=== PATIENT | male | born 1980 | race Caucasian/White ===

== ENCOUNTER 2022-02-23 23:07 | Emergency (ER) | payer SELFPAY ==
[~2022-02-23] VITALS: Ht 175.3 cm; Wt 81.6 kg
[2022-02-23 23:07] VITALS: BP 125/80
[~2022-02-23 23:07] MED LIST: [UNRECOGNIZED DRUG - REMARK]
--- NOTE | 2022-02-23 23:07 | NUR ---
TO [facility] WITH [place] [facility]
[2022-02-23] MEDS ORDERED: NACL 0.9% 1,000 ML IV ONE (23:55)
[2022-02-24 00:22] LABS: ANION GAP 18.4 (8-16); CARBON DIOXIDE 20.3 mmol/L (21-32); POTASSIUM 3.7 mmol/L (3.5-5.1)
--- NOTE | 2022-02-24 00:30 | NUR ---
41YR OLD MALE [facility] FOR PRE BOOK CUSTODY. PAUL PRATHER STATED TO OFFICER THAT PT WAS DIABETES. SUBJECT NEED MED CLEARANCE FOR CUSTODY BOOKING. ACCU CHECK WAS [address]. PD AT BEDSIDE. DENIES N/V OR ABD PAIN. PT STATES HAVING PAIN IN LEFT ANKLE . PLUS SWELLING GOOD ROM. DENIES ANY INJURY. 20G IV CATH PLACED IN R FOREARM NKDA DM
[2022-02-24] MEDS ORDERED: METF-1243 PO (00:39)
[2022-02-24] MEDS ORDERED: INSULIN REGULAR, HUMAN 100 UNIT/ML VIAL IVP ONE (00:55)
[2022-02-24] MEDS ORDERED: NACL 0.9% 1,000 ML IV ONE (00:55)
[2022-02-24 01:59] VITALS: BP 111/89
--- NOTE | 2022-02-24 01:59 | NUR ---
Patient discharged with v/s stable. Written and verbal after care instructions given and explained. Patient alert, oriented and verbalized understanding of instructions. Ambulatory with in custody. All questions addressed prior to discharge. ID band removed. Patient advised to follow up with PMD. Rx of given. Patient educated on indication of medication including possible reaction and side effects. Opportunity to ask questions provided and answered.
--- NOTE | 2022-02-24 01:59 | NUR ---
Chart checked and completed.
== END 2022-02-24 01:59 ==
LOC: MED 23:07
DX: E11.65 Type 2 diabetes mellitus with hyperglycemia (principal); I10 Essential (primary) hypertension; Z79.4 Long term (current) use of insulin; Z79.899 Other long term (current) drug therapy
CPT/HCPCS: 36415; 80048; 96361; 96374; 99283; J1815; J7030

== ENCOUNTER 2023-09-11 16:05 | Emergency (ER) | payer BC, OTHER ==
[~2023-09-11] VITALS: Ht 175.3 cm; Wt 86.2 kg
[~2023-09-11 16:05] MED LIST changes: +METF-1243 PO
[2023-09-11 16:19] VITALS: BP 127/85; PULSE 120; RESP 20; TEMP 98.3; O2SAT 97
[2023-09-11] MEDS ORDERED: IBUP-2213 PO (16:55)
[2023-09-11] MEDS ORDERED: ONDA8TAB87 PO (16:55)
[2023-09-11 17:17] VITALS: BP 122/78; PULSE 108; RESP 18; TEMP 98.2; O2SAT 99
== END 2023-09-11 17:18 | disposition home or self-care (01) ==
LOC: MED 16:05
DX: R11.2 Nausea with vomiting, unspecified (principal); R10.13 Epigastric pain; E11.9 Type 2 diabetes mellitus without complications; Z79.4 Long term (current) use of insulin; Z79.899 Other long term (current) drug therapy
CPT/HCPCS: 82948; 99283